=== PATIENT | female | born 1965 | race Caucasian/White ===

== ENCOUNTER 2021-06-09 14:10 | Emergency (ER) | payer OTHER ==
[~2021-06-09] VITALS: Ht 160 cm; Wt 80.5 kg
[2021-06-09 15:22] LABS: URINE APPEARANCE HAZY; URINE COLOR LIGHT YELLOW; URINE PROTEIN(semi-quant) TRACE (NEGATIVE)
[2021-06-09 15:23] LABS: URINE BILIRUBIN NEGATIVE (NEGATIVE); URINE BLOOD TRACE (NEGATIVE); URINE GLUCOSE NEGATIVE (NEGATIVE); URINE KETONE NEGATIVE (NEGATIVE); URINE LEUKOCYTE ESTERASE NEGATIVE (NEGATIVE); URINE NITRATE NEGATIVE (NEGATIVE); URINE UROBILINOGEN NORMAL (NORMAL); URINE WBC 0-1 /hpf (0-3)
[2021-06-09] MEDS ORDERED: NORCO 325 MG-51 TA1 PO (17:15)
[2021-06-09] MEDS ORDERED: MEDROL DOSEPAK4 MG PO (17:15)
[2021-06-09 17:39] VITALS: BP 101/67
== END 2021-06-09 17:40 | disposition home or self-care (01) ==
LOC: ED 14:10
PROVIDERS: Physician Assistant
DX: R05.9 Cough, unspecified (principal)
CPT/HCPCS: J1885; J2360; J2930; J3010

== ENCOUNTER 2021-10-11 20:30 | Emergency (ER) | payer OTHER ==
[~2021-10-11 20:30] MED LIST: MEDROL DOSEPAK4 MG PO; NORCO 325 MG-51 TA1 PO
[2021-10-11 21:04] LABS: BASO # 0.04 K/mm3 (0.02-0.10); HEMATOCRIT 45.6 % (37.0-47.0); HEMOGLOBIN 15.5 g/dL (12.5-16.0); LYMPH# 3.94 K/mm3 (1.50-4.00); MEAN CELL VOLUME 95 fl (78-100); MEAN CORPUSCULAR HEMOGLOBIN 32 pg (27-31); MEAN CORPUSCULAR HGB CONC 34 g/dL (33-37); MONO # 1.02 K/mm3 (0.20-0.80); NEU # 4.72 K/mm3 (1.40-6.50); PLATELET COUNT 194 K/mm3 (130-400); RED BLOOD COUNT 4.79 M/mm3 (4.10-5.30); RED CELL DISTRIBUTION WIDTH 12.8 % (11.5-14.5); WHITE BLOOD COUNT 9.8 K/mm3 (4.8-10.8)
[2021-10-11 21:06] LABS: ALBUMIN 4.7 g/dL (3.5-5.0)
[2021-10-11 21:07] LABS: POTASSIUM 3.9 mmol/L (3.5-5.1); SODIUM 143 mmol/L (136-145)
[2021-10-11 21:08] LABS: CALCIUM 10.2 mg/dL (8.3-10.5)
[2021-10-11 21:09] LABS: GLUCOSE 92 mg/dL (65-105); TOTAL PROTEIN 7.8 g/dL (6.4-8.3)
[2021-10-11 21:10] LABS: CARBON DIOXIDE 18 mmol/L (22-29)
[2021-10-11 21:14] LABS: AST-SGOT 84 U/L (5-34)
[2021-10-11 21:16] LABS: ALT/SGPT 84 U/L (0-55)
[2021-10-11 21:19] LABS: ACETAMINOPHEN < 1 ug/mL; ALCOHOL IN-HOUSE 267 mg/dL (<10); MAGNESIUM 2.03 mg/dL (1.60-2.60)
[2021-10-11 21:28] LABS: TOTAL BILIRUBIN 0.4 mg/dL (0.2-1.2)
[2021-10-11 21:48] LABS: URINE APPEARANCE CLEAR; URINE BILIRUBIN NEGATIVE (NEGATIVE); URINE BLOOD NEGATIVE (NEGATIVE); URINE COLOR YELLOW; URINE GLUCOSE NEGATIVE (NEGATIVE); URINE KETONE NEGATIVE (NEGATIVE); URINE LEUKOCYTE ESTERASE NEGATIVE (NEGATIVE); URINE NITRATE NEGATIVE (NEGATIVE); URINE PROTEIN(semi-quant) NEGATIVE (NEGATIVE); URINE UROBILINOGEN NORMAL (NORMAL); URINE WBC 0 /hpf (0-3)
[2021-10-11 21:53] LABS: TROPONIN-I < 0.030 ng/mL (<0.030)
[2021-10-11] MEDS ORDERED: IRON90 MG PO (22:18)
[2021-10-11 22:30] VITALS: BP 139/82
== END 2021-10-11 22:30 | disposition home or self-care (01) ==
LOC: ED 20:30
PROVIDERS: Nurse Practitioner
DX: F10.129 Alcohol abuse with intoxication, unspecified (principal); F41.9 Anxiety disorder, unspecified; F12.10 Cannabis abuse, uncomplicated; F17.210 Nicotine dependence, cigarettes, uncomplicated; Z28.310 Unvaccinated for COVID-19; Y90.8 Blood alcohol level of 240 mg/100 ml or more